=== PATIENT | male | born 1985 ===

== ENCOUNTER 2023-03-20 14:29 | Emergency (ER) | payer OTHER, SELFPAY ==
--- NOTE | ~2023-03-20 | XR_ITS ---
EXAMINATION: XR RIBS, LEFT CLINICAL INFORMATION: Rib pain COMPARISON: Chest x-ray June 25, 2014 TECHNIQUE: 3 views of the left ribs were obtained. FINDINGS: Cardiac silhouette is normal in size. The lungs are well aerated. There is no lobar consolidation. No pleural effusion or pneumothorax. No left-sided rib fracture. XR/XR ribs LT min 3V w CXR1V IMPRESSION: No left-sided rib fracture.
[2023-03-20 14:50] VITALS: BP 125/78; PULSE 66; RESP 18; TEMP 36.6; O2SAT 98; BMI 23.3
--- NOTE | 2023-03-20 14:50 | ED.GENADULT ---
HPI - General Adult General Chief complaint: Fall Stated complaint: Fall/L rib pain Time Seen by Provider: 03/20/23 16:10 Related Data Allergies Allergy/AdvReac Type Severity Reaction Status Date / Time Penicillins [PENICILLINS] Allergy Mild RASH Verified 03/20/23 14:50 [facility] Social History Social History Advance Directives: No Advance Directives Information Provided: Yes Physical Exam ED Vital Signs: BMI result Body Mass Index 23.3 Course Course Course Narrative: This is an RME: Additional HPI, ROS, PE not included below will be deferred to primary provider. 37 year old male after falling off a ladder Sunday. He points to the pain, near the left 9-10 rib area. Rates the pain an 8/10. Plan: Toradol, imaigng Medications Administered Discontinued Medications Generic Name Dose Route Start Last Admin Trade Name Freq PRN Reason Stop Dose Admin Ketorolac Tromethamine 30 mg 03/20/23 14:50 03/20/23 16:17 Ketorolac Tromethamine 30 Mg/Ml Vial IM 03/20/23 14:51 30 mg ONCE ONE Administration Discharge Plan Discharge Clinical Impression: Eloped from emergency department Patient Disposition: Elopement Discharge Date/Time: 03/20/23 18:28
[2023-03-20] MEDS: Ketorolac Tromethamine 30 MG/ML VIAL IM (16:17)
--- NOTE | 2023-03-20 16:27 | PC.NURSE ---
re: late administration of toradol 30mg- medication given when this nurse assumed care at 1617, site: right delt for 10/10 left rib pain
--- NOTE | 2023-03-20 17:09 | PC.NURSE ---
pt miriam dnurse into room advised that he want to leave as his girlfriend needs to pickle maker children- advised pt would have to sign out - AMA paperwork signed
== END 2023-03-20 18:28 | disposition left against medical advice (07) ==
PROVIDERS: Emergency Provider Emergency Medicine; PCP Internal Medicine
DX: S29.9XXA Unspecified injury of thorax, initial encounter (principal); R07.81 Pleurodynia; W11.XXXA Fall on and from ladder, initial encounter; Y93.9 Activity, unspecified; Y92.9 Unspecified place or not applicable; Y99.9 Unspecified external cause status
CPT/HCPCS: 71101; 96372; 99282; 99284; J1885